=== PATIENT | female | born 1975 ===

== ENCOUNTER 2018-11-26 06:05 | Day surgery (SDC) | payer OTHER | END 2018-11-26 21:15 | disposition home or self-care (01) | LOC: CIR.AMB 06:05 | PROVIDERS: Plastic Surgery; Surgery | PROC: C71L1ZZ Planar Nuclear Medicine Imaging of Upper Chest Lymphatics using Technetium 99m (Tc-99m) (ICD-10-PCS; 2018-11-26) | PROC: 0HBV0ZZ Excision of Bilateral Breast, Open Approach (ICD-10-PCS; 2018-11-26) | PROC: 0HBU0ZZ Excision of Left Breast, Open Approach (ICD-10-PCS; principal; 2018-11-26 13:00) | PROC: 07B60ZZ Excision of Left Axillary Lymphatic, Open Approach (ICD-10-PCS; 2018-11-26 13:00) | DX: D05.12 Intraductal carcinoma in situ of left breast (principal); N62 Hypertrophy of breast | CPT/HCPCS: 19301; 38525; 38792; 19318; 78195; A9541 ==

== ENCOUNTER 2021-08-04 20:45 | Emergency (ER) | payer OTHER ==
[~2021-08-04] VITALS: Ht 162.6 cm; Wt 60.8 kg
== END 2021-08-05 03:00 | disposition home or self-care (01) ==
LOC: ER 20:45
DX: R30.0 Dysuria (principal)

== ENCOUNTER 2022-02-22 13:43 | Emergency (ER) | payer OTHER ==
[~2022-02-22] VITALS: Ht 162.6 cm; Wt 58.1 kg
== END 2022-02-22 16:08 | disposition home or self-care (01) ==
LOC: ER 13:43
DX: R51.9 Headache, unspecified (principal)